=== PATIENT | male | born 1950 | race Caucasian/White ===

== ENCOUNTER → 2019-02-25 | Outpatient (REF) | payer MEDICARE | LOC: M LAB REF 11:38 | PROVIDERS: ATTEND Nurse Practitioner Family | DX: R30.0 Dysuria (principal) ==

== ENCOUNTER 2019-12-21 10:39 | Emergency (ER) | payer MEDICARE, OTHER ==
[~2019-12-21] VITALS: Ht 177.8 cm; Wt 63.3 kg
[2019-12-21] MEDS ORDERED: TIOT18INH INH (10:50)
[2019-12-21] MEDS ORDERED: ALBU8.5H INH (10:50)
[2019-12-21] MEDS ORDERED: ADV100INH INH (10:50)
[2019-12-21] MEDS ORDERED: SING10TA32 PO (10:50)
[2019-12-21] MEDS ORDERED: predniSONE 20 MG TAB PO ONE (11:45)
[2019-12-21] MEDS: COMBIVENT RESPIMAT 100-20MCG INHALER 4GM INH SCH ×3 (11:54→12:25)
[2019-12-21 12:09] LABS: BASO % 0.5 % (0.0-1.0); EOS # 0.2 10^3/uL (0.0-0.5); EOS % 2.5 % (0.0-3.0); HEMATOCRIT 44.2 % (42.0-52.0); HEMOGLOBIN 14.9 g/dl (13.5-17.5); LYMPH # 1.8 10^3/uL (1.5-5.0); LYMPH % 21.4 % (24.0-44.0); MEAN CORPUSCULAR HEMOGLOBIN 30.2 pg (27.0-33.0); MEAN CORPUSCULAR HGB CONC 33.7 g/dl (32.0-36.5); MEAN CORPUSCULAR VOLUME 89.7 fl (80.0-96.0); MONO # 0.8 10^3/uL (0.0-0.8); MONO % 9.9 % (0.0-5.0); NEUTROPHILS # 5.4 10^3/uL (1.5-8.5); PLATELET COUNT, AUTOMATED 233 10^3/uL (150-450); RED BLOOD COUNT 4.93 10^6/uL (4.30-6.10); WHITE BLOOD COUNT 8.3 10^3/uL (4.0-10.0)
[2019-12-21 12:46] LABS: ALBUMIN 3.6 GM/DL (3.2-5.2); ALT/SGPT 29 U/L (12-78); BILIRUBIN,DIRECT 0.1 MG/DL (0.0-0.2); BILIRUBIN,TOTAL 0.4 MG/DL (0.2-1.0); BLOOD UREA NITROGEN 13 MG/DL (7-18); CALCIUM LEVEL 8.6 MG/DL (8.8-10.2); CARBON DIOXIDE LEVEL 30 MEQ/L (21-32); CHLORIDE LEVEL 105 MEQ/L (98-107); CK-MB VALUE MASS < 1.0 NG/ML (<3.6); CPK CREATINE PHOSPHOKINASE 58 U/L (39-308); CREATININE FOR GFR 0.77 MG/DL (0.70-1.30); GLOMERULAR FILTRATION RATE > 60.0 (>49); GLUCOSE, FASTING 84 MG/DL (70-100); MB/CK RELATIVE INDEX 1.72 (< OR =4); NT-PRO BNP 137 PG/ML (<125); POTASSIUM SERUM 4.4 MEQ/L (3.5-5.1); SODIUM LEVEL 140 MEQ/L (136-145); THYROXINE (T4) 13.2 UG/DL (4.5-12.0); TOTAL PROTEIN 7.1 GM/DL (6.4-8.2); TROPONIN I < 0.02 NG/ML (< 0.10)
[2019-12-21] MEDS ORDERED: AZIT-12 PO (13:24)
[2019-12-21] MEDS ORDERED: PRED10TA2 PO (13:24)
[2019-12-21 13:56] VITALS: BP 143/74
--- NOTE | 2020-01-08 16:36 | ECGEPIP ---
SINUS RHYTHM WITH SUPRAVENTRICULAR PACS PRWP RVH SEE SCANNED DOWNTIME REPORT MTDD
--- NOTE | 2020-01-16 14:19 | REP ---
PORTABLE CHEST X-RAY CLINICAL: Cough and dyspnea. FINDINGS: Mediastinum and cardiac silhouette normal. Lung josue demonstrate chronic interstitial changes and emphysematous disease with suggested basilar fibrosis. No obvious focal consolidation. No effusion. No pneumothorax. Skeletal structures intact. IMPRESSION: Chronic appearing changes. No focal consolidation. MTDD
== END 2019-12-21 13:58 | disposition home or self-care (01) ==
LOC: M ED 10:39
DX: J44.1 Chronic obstructive pulmonary disease with (acute) exacerbation (principal); C67.9 Malignant neoplasm of bladder, unspecified; Z88.1 Allergy status to other antibiotic agents

== ENCOUNTER → 2021-11-07 | Outpatient (CLI) | payer OTHER ==
[~2021-11-07] MED LIST: ADV100INH INH; ALBU8.5H INH; AZIT-12 PO; PRED10TA2 PO; SING10TA32 PO; TIOT18INH INH
== END ==
LOC: M PLARAD 13:13
PROVIDERS: ATTEND Internal Medicine
DX: R91.1 Solitary pulmonary nodule (principal)
CPT/HCPCS: 78815; A9552

== ENCOUNTER 2022-04-26 10:28 | Inpatient (IN) | payer MEDICARE, OTHER ==
[~2022-04-26] VITALS: Ht 177.8 cm; Wt 64.0 kg
[2022-04-26 11:17] LABS: VENOUS BASE EXCESS 0.3 (-2.0-2.0); VENOUS HCO3 25.6 MEQ/L (23.0-27.0); VENOUS O2 SATURATION 48.7 % (60.0-80.0); VENOUS PARTIAL PRESSURE CO2 43.9 mmHg (38.0-50.0); VENOUS PARTIAL PRESSURE O2 26.9 mmHg (30.0-50.0); VENOUS PH 7.384 UNITS (7.330-7.430); VENOUS STANDARD HCO3 23.5 MEQ/L
[2022-04-26 11:24] LABS: HEMATOCRIT 42.6 % (42.0-52.0); MEAN CORPUSCULAR HEMOGLOBIN 28.8 pg (27.0-33.0); MEAN CORPUSCULAR HGB CONC 32.9 g/dl (32.0-36.5); MEAN CORPUSCULAR VOLUME 87.7 fl (80.0-96.0); PLATELET COUNT, AUTOMATED 294 10^3/uL (150-450); RED BLOOD COUNT 4.86 10^6/uL (4.30-6.10); WHITE BLOOD COUNT 14.4 10^3/uL (4.0-10.0)
[2022-04-26 11:45] LABS: INR 0.88; PROTHROMBIN TIME 12.1 SECONDS (12.5-14.5)
[2022-04-26 11:49] LABS: BILIRUBIN,DIRECT 0.2 MG/DL (<0.4)
[2022-04-26 11:50] LABS: ALKALINE PHOSPHATASE 96 U/L (46-116); ALT/SGPT 20 U/L (7.0-40); AST/SGOT 28 U/L (<34); BILIRUBIN,TOTAL 0.6 MG/DL (0.3-1.2); BLOOD UREA NITROGEN 19 MG/DL (9-23); CALCIUM LEVEL 8.7 MG/DL (8.3-10.6); CARBON DIOXIDE LEVEL 26 MMOL/L (20-31); CHLORIDE LEVEL 100 MMOL/L (98-107); CK-MB VALUE MASS < 1.0 NG/ML (<3.6); CPK CREATINE PHOSPHOKINASE 59 U/L (46-171); CREATININE FOR GFR 0.86 MG/DL (0.70-1.30); GLOMERULAR FILTRATION RATE > 60.0 (>49); GLUCOSE, FASTING 100 MG/DL (74-106); MB/CK RELATIVE INDEX 1.69 (< OR =4); POTASSIUM SERUM 4.7 MMOL/L (3.5-5.1); SODIUM LEVEL 136 MMOL/L (136-145); TOTAL PROTEIN 6.8 G/DL (5.7-8.2)
[2022-04-26] MEDS ORDERED: cefTRIAXone SOD 2 GM in D5W MINI-BAG PLUS 50 ML IV ONE (12:15)
[2022-04-26] MEDS ORDERED: NS 1,840 ML in IV 1 EA IV ONE (12:15)
[2022-04-26 12:40] LABS: CK-MB VALUE MASS < 1.0 NG/ML (<3.6)
[2022-04-26 12:43] LABS: CPK CREATINE PHOSPHOKINASE 54 U/L (46-171); MB/CK RELATIVE INDEX 1.85 (< OR =4)
[2022-04-26 13:36] LABS: BASO # 0.1 10^3/uL (0.0-0.2); BASO % 0.4 % (0.0-1.0); EOS % 0.3 % (0.0-3.0); LYMPH # 1.4 10^3/uL (1.5-5.0); LYMPH % 9.5 % (24.0-44.0); MONO % 11.1 % (2.0-8.0); NEUTROPHILS # 11.1 10^3/uL (1.5-8.5); NEUTROPHILS % 77.6 % (36.0-66.0)
[2022-04-26 13:39] LABS: MONO # 1.6 10^3/uL (0.0-0.8)
[2022-04-26] MEDS ORDERED: ADV500INH INH (14:46)
[2022-04-26] MEDS ORDERED: VITMTA PO (14:46)
[2022-04-26] MEDS ORDERED: SPIR12.9 INH (14:46)
[2022-04-26] MEDS ORDERED: ALBU2.5V10 NEB (14:46)
[2022-04-26] MEDS ORDERED: HOME MED LIST COMPLETE! XX SCH (14:50)
[2022-04-26] MEDS ORDERED: guaiFENesin 200 MG TAB PO SCH (16:00)
[2022-04-26] MEDS ORDERED: ACETAMINOPHEN TAB 650MG DOSE (2X325MG) PO PRN (16:45)
[2022-04-26] MEDS ORDERED: LEVALBUTEROL 1.25MG 0.5ML CONCENTRATE NEB INH PRN (16:45)
[2022-04-26] MEDS: AZITHROMYCIN 250MG TABLET PO SCH (18:09)
[2022-04-26] MEDS: ADVAIR HFA 230/21MCG INHALER INH SCH (19:10)
[2022-04-26] MEDS: LEVALBUTEROL 1.25MG 0.5ML CONCENTRATE NEB INH SCH (19:10)
[2022-04-26 19:13] VITALS: O2SAT 91
[2022-04-26 20:00] VITALS: BP 129/72
[2022-04-26] MEDS: guaiFENesin 200 MG TAB PO SCH (21:22)
[2022-04-26] MEDS: HEPARIN SOD (PORCINE) 5000UNITS/ML 1ML VIAL/SYRINGE SC SCH (21:24)
[2022-04-27] VITALS: BP 127/69
[2022-04-27] MEDS: LEVALBUTEROL 1.25MG 0.5ML CONCENTRATE NEB INH SCH ×3 (01:09→13:22)
[2022-04-27] MEDS: guaiFENesin 200 MG TAB PO SCH ×3 (01:35→09:46)
[2022-04-27 03:38] VITALS: BP 132/71
[2022-04-27 04:19] LABS: HEMATOCRIT 36.7 % (42.0-52.0); MEAN CORPUSCULAR HEMOGLOBIN 28.4 pg (27.0-33.0); MEAN CORPUSCULAR HGB CONC 32.4 g/dl (32.0-36.5); MEAN CORPUSCULAR VOLUME 87.6 fl (80.0-96.0); PLATELET COUNT, AUTOMATED 285 10^3/uL (150-450); RED BLOOD COUNT 4.19 10^6/uL (4.30-6.10); WHITE BLOOD COUNT 7.1 10^3/uL (4.0-10.0)
[2022-04-27 04:20] LABS: HEMOGLOBIN 11.9 g/dl (13.5-17.5)
[2022-04-27 04:33] LABS: MAGNESIUM LEVEL 1.9 MG/DL (1.8-2.4)
[2022-04-27 04:39] LABS: ALBUMIN 2.7 G/DL (3.2-5.2); ALKALINE PHOSPHATASE 81 U/L (46-116); ALT/SGPT 25 U/L (7.0-40); AST/SGOT 22 U/L (<34); BILIRUBIN,TOTAL 0.4 MG/DL (0.3-1.2); BLOOD UREA NITROGEN 26 MG/DL (9-23); CALCIUM LEVEL 8.2 MG/DL (8.3-10.6); CARBON DIOXIDE LEVEL 25 MMOL/L (20-31); CHLORIDE LEVEL 103 MMOL/L (98-107); CREATININE FOR GFR 0.72 MG/DL (0.70-1.30); GLOMERULAR FILTRATION RATE > 60.0 (>49); GLUCOSE, FASTING 117 MG/DL (74-106); POTASSIUM SERUM 4.9 MMOL/L (3.5-5.1); SODIUM LEVEL 138 MMOL/L (136-145); TOTAL PROTEIN 5.8 G/DL (5.7-8.2)
[2022-04-27] MEDS: HEPARIN SOD (PORCINE) 5000UNITS/ML 1ML VIAL/SYRINGE SC SCH (05:35)
[2022-04-27 07:35] VITALS: BP 118/61
[2022-04-27] MEDS ORDERED: TIOTROPIUM INHALER/CAPSULE (SPIRIVA) INH SCH (08:00)
[2022-04-27] MEDS: ADVAIR HFA 230/21MCG INHALER INH SCH (08:06)
[2022-04-27] MEDS ORDERED: MONTELUKAST 10 MG TAB PO SCH (09:00)
[2022-04-27] MEDS ORDERED: predniSONE 50 MG TAB PO SCH (09:00)
[2022-04-27] MEDS ORDERED: MULTIVITAMINS/MINERALS THERAP 1 TAB PO SCH (09:00)
[2022-04-27 09:46] VITALS: BP 118/61
[2022-04-27] MEDS: AZITHROMYCIN 250MG TABLET PO SCH (09:46)
[2022-04-27 11:58] LABS: HEMATOCRIT 37.6 % (42.0-52.0); HEMOGLOBIN 12.4 g/dl (13.5-17.5)
[2022-04-27] MEDS ORDERED: LEVO1TAB40 PO (12:39)
[2022-04-27] MEDS ORDERED: DILT30TA PO (12:39)
[2022-04-27] MEDS ORDERED: AZIT-12 PO (12:39)
[2022-04-27] MEDS ORDERED: PRED50TA PO (12:39)
[2022-04-27] MEDS ORDERED: cefTRIAXone SOD 2 GM in D5W MINI-BAG PLUS 50 ML IV SCH (13:00)
[2022-04-27 13:10] VITALS: BP 128/58
[2022-04-28] MEDS ORDERED: DILT30TA PO (10:10)
== END 2022-04-27 14:40 | disposition home or self-care (01) | DRG 308 ==
LOC: M ED 10:28 → EDBD 10:28 → M ED INP 16:44 → ENRESERV 18:28 → M PCU 19:49
PROVIDERS: ADMIT Family Medicine; ATTEND Family Medicine
DX: I48.92 Unspecified atrial flutter (principal); J18.9 Pneumonia, unspecified organism; J44.1 Chronic obstructive pulmonary disease with (acute) exacerbation; I48.91 Unspecified atrial fibrillation; Z79.899 Other long term (current) drug therapy; Z87.891 Personal history of nicotine dependence

== ENCOUNTER 2022-10-05 08:20 | Emergency (ER) | payer MEDICARE, OTHER ==
[~2022-10-05] VITALS: Ht 177.8 cm; Wt 62.7 kg
[~2022-10-05 08:20] MED LIST changes: +ADV500INH INH; +ALBU2.5V10 NEB; +DILT30TA PO; +LEVO1TAB40 PO; +MONT-5 PO; +PRED50TA PO; -SING10TA32 PO; +SPIR12.9 INH; +VITMTA PO
[2022-10-05] MEDS ORDERED: CARD40TA PO (08:32)
[2022-10-05] MEDS ORDERED: ACETAMINOPHEN 500 MG TAB PO ONE (08:35)
[2022-10-05] MEDS ORDERED: predniSONE 20 MG TAB PO ONE (11:40)
[2022-10-05] MEDS ORDERED: NORCO, ANEXSIA 5/325MG TABLET (HYDROcodone/ACETAMINOPHEN) PO ONE (11:40)
[2022-10-05] MEDS ORDERED: PRED20TA PO (12:17)
[2022-10-05] MEDS ORDERED: HYDR-4571 PO (12:17)
[2022-10-05 12:24] VITALS: BP 148/76; TEMP 98.4; O2SAT 90
== END 2022-10-05 13:00 | disposition home or self-care (01) ==
LOC: M ED 08:20
DX: J20.9 Acute bronchitis, unspecified (principal); S52.352A Displaced comminuted fracture of shaft of radius, left arm, initial encounter for closed fracture; I10 Essential (primary) hypertension; C67.9 Malignant neoplasm of bladder, unspecified; W01.0XXA Fall on same level from slipping, tripping and stumbling without subsequent striking against object, initial encounter; Z88.8 Allergy status to other drugs, medicaments and biological substances; Z79.52 Long term (current) use of systemic steroids; Z79.899 Other long term (current) drug therapy; Y92.009 Unspecified place in unspecified non-institutional (private) residence as the place of occurrence of the external cause
CPT/HCPCS: 73090; 73110; 73502; 99284; J7512

== ENCOUNTER → 2022-10-06 | Outpatient (CLI) | payer MEDICARE, OTHER ==
[~2022-10-06] MED LIST changes: +CARD40TA PO; +HYDR-4571 PO; +PRED20TA PO
== END ==
LOC: M SOG 09:06
PROVIDERS: ATTEND Orthopaedic Surgery
DX: S52.592A Other fractures of lower end of left radius, initial encounter for closed fracture (principal)

== ENCOUNTER → 2022-10-11 | Outpatient (CLI) | payer MEDICARE | LOC: M SOG 08:41 | PROVIDERS: ATTEND Orthopaedic Surgery | DX: S52.592D Other fractures of lower end of left radius, subsequent encounter for closed fracture with routine healing (principal) ==

== ENCOUNTER → 2022-10-27 | Outpatient (CLI) | payer MEDICARE | LOC: M SOG 08:01 | PROVIDERS: ATTEND Orthopaedic Surgery | DX: S52.592A Other fractures of lower end of left radius, initial encounter for closed fracture (principal); W18.30XA Fall on same level, unspecified, initial encounter; Y92.009 Unspecified place in unspecified non-institutional (private) residence as the place of occurrence of the external cause ==

== ENCOUNTER → 2022-11-22 | Outpatient (CLI) | payer BC, OTHER | LOC: M SOG 08:24 | PROVIDERS: ATTEND Orthopaedic Surgery | DX: S52.592D Other fractures of lower end of left radius, subsequent encounter for closed fracture with routine healing (principal) ==

== ENCOUNTER → 2022-12-11 | Outpatient (CLI) | payer MEDICARE, OTHER | LOC: M RAD 09:05 | DX: B19.20 Unspecified viral hepatitis C without hepatic coma (principal) ==

== ENCOUNTER 2023-04-24 08:20 | Inpatient (IN) | payer MEDICARE, OTHER ==
[~2023-04-24] VITALS: Ht 177.8 cm; Wt 64.4 kg
[2023-04-24] MEDS: DOCUSATE SODIUM 100MG CAPSULE PO SCH ×2 (09:00→19:59)
[2023-04-24 09:29] LABS: BASO % 0.1 % (0.0-1.0); EOS # 0.1 10^3/uL (0.0-0.5); EOS % 0.6 % (0.0-3.0); HEMOGLOBIN 14.5 g/dl (13.5-17.5); LYMPH # 1.6 10^3/uL (1.5-5.0); LYMPH % 10.5 % (24.0-44.0); MEAN CORPUSCULAR HEMOGLOBIN 29.8 pg (27.0-33.0); MEAN CORPUSCULAR HGB CONC 33.7 g/dl (32.0-36.5); MEAN CORPUSCULAR VOLUME 88.3 fl (80.0-96.0); MONO # 1.4 10^3/uL (0.0-0.8); MONO % 9.6 % (2.0-8.0); NEUTROPHILS # 11.6 10^3/uL (1.5-8.5); NEUTROPHILS % 78.5 % (36.0-66.0); PLATELET COUNT, AUTOMATED 276 10^3/uL (150-450); RED BLOOD COUNT 4.87 10^6/uL (4.30-6.10); WHITE BLOOD COUNT 14.7 10^3/uL (4.0-10.0)
[2023-04-24 09:45] LABS: CK-MB VALUE MASS 1.2 NG/ML (<3.6)
[2023-04-24 09:47] LABS: ALBUMIN 3.1 G/DL (3.2-5.2); ALKALINE PHOSPHATASE 72 U/L (46-116); ALT/SGPT 28 U/L (7.0-40); AST/SGOT 21 U/L (<34); BILIRUBIN,DIRECT 0.1 MG/DL (<0.4); BILIRUBIN,TOTAL 0.4 MG/DL (0.3-1.2); BLOOD UREA NITROGEN 18 MG/DL (9-23); CALCIUM LEVEL 8.5 MG/DL (8.3-10.6); CARBON DIOXIDE LEVEL 28 MMOL/L (20-31); CHLORIDE LEVEL 107 MMOL/L (98-107); CPK CREATINE PHOSPHOKINASE 54 U/L (46-171); CREATININE FOR GFR 0.74 MG/DL (0.70-1.30); GLOMERULAR FILTRATION RATE > 60.0 (>42); GLUCOSE, FASTING 82 MG/DL (74-106); MB/CK RELATIVE INDEX 2.22 (< OR =4); POTASSIUM SERUM 4.4 MMOL/L (3.5-5.1); SODIUM LEVEL 141 MMOL/L (136-145); TOTAL PROTEIN 6.3 G/DL (5.7-8.2)
[2023-04-24 11:01] LABS: CK-MB VALUE MASS 1.1 NG/ML (<3.6)
[2023-04-24 11:03] LABS: MB/CK RELATIVE INDEX 2.5 (< OR =4)
[2023-04-24] MEDS ORDERED: ISOVUE-370 76% 100ML VIAL As Ordered ONE (11:54)
[2023-04-24] MEDS ORDERED: IPRATROPIUM 0.5MG/ALBUTEROL 2.5MG INH SOL UD 3ML (DUONEB) NEB ONE (11:55)
[2023-04-24] MEDS ORDERED: methylPREDNISolone 125MG 2ML VIAL IV ONE (11:55)
[2023-04-24] MEDS ORDERED: MED REC IN PROGRESS XX SCH (12:40)
[2023-04-24] MEDS ORDERED: AZITHROMYCIN 250MG TABLET PO ONE (12:40)
[2023-04-24] MEDS ORDERED: cefTRIAXone SOD 1 GM in D5W MINI-BAG PLUS 50 ML IV ONE (12:40)
[2023-04-24] MEDS ORDERED: MOM 30ML SUSPENSION UDC PO PRN (13:30)
[2023-04-24] MEDS ORDERED: ACETAMINOPHEN TAB 650MG DOSE (2X325MG) PO PRN (13:30)
[2023-04-24] MEDS: IPRATROPIUM 0.5MG/ALBUTEROL 2.5MG INH SOL UD 3ML (DUONEB) INH SCH ×3 (14:00→19:15)
[2023-04-24 14:27] LABS: INR 1.02; PROTHROMBIN TIME 13.1 SECONDS (12.5-14.5)
[2023-04-24] MEDS ORDERED: ASPI81CH33 PO (14:36)
[2023-04-24] MEDS ORDERED: HOME MED LIST COMPLETE! XX SCH (14:40)
[2023-04-24 16:04] VITALS: BP 161/86; TEMP 97.3; O2SAT 93
[2023-04-24] MEDS ORDERED: ALBUTEROL SULFATE 2.5MG/0.5ML INH NEB SOLN NEB PRN (18:25)
[2023-04-24] MEDS: ADVAIR HFA 230/21MCG INHALER INH SCH (19:15)
[2023-04-24] MEDS: TIOTROPIUM INHALER/CAPSULE (SPIRIVA) INH SCH (19:15)
[2023-04-24] MEDS: dilTIAZem 30 MG TAB PO SCH (20:00)
[2023-04-24 20:49] VITALS: BP 112/71; TEMP 97.7; O2SAT 96
[2023-04-25] MEDS: IPRATROPIUM 0.5MG/ALBUTEROL 2.5MG INH SOL UD 3ML (DUONEB) INH SCH ×4 (01:15→20:44)
[2023-04-25 04:59] VITALS: BP 130/75; TEMP 97.7; O2SAT 96
[2023-04-25 05:58] LABS: HEMATOCRIT 40.4 % (42.0-52.0); HEMOGLOBIN 13.5 g/dl (13.5-17.5); MEAN CORPUSCULAR HEMOGLOBIN 29.3 pg (27.0-33.0); MEAN CORPUSCULAR HGB CONC 33.4 g/dl (32.0-36.5); MEAN CORPUSCULAR VOLUME 87.8 fl (80.0-96.0); PLATELET COUNT, AUTOMATED 297 10^3/uL (150-450); WHITE BLOOD COUNT 9.7 10^3/uL (4.0-10.0)
[2023-04-25 06:26] LABS: BLOOD UREA NITROGEN 21 MG/DL (9-23); CALCIUM LEVEL 8.2 MG/DL (8.3-10.6); CARBON DIOXIDE LEVEL 26 MMOL/L (20-31); CHLORIDE LEVEL 105 MMOL/L (98-107); CREATININE FOR GFR 0.74 MG/DL (0.70-1.30); GLOMERULAR FILTRATION RATE > 60.0 (>42); GLUCOSE, FASTING 117 MG/DL (74-106); POTASSIUM SERUM 4.3 MMOL/L (3.5-5.1); SODIUM LEVEL 139 MMOL/L (136-145)
[2023-04-25] MEDS: TIOTROPIUM INHALER/CAPSULE (SPIRIVA) INH SCH ×2 (07:11→20:47)
[2023-04-25] MEDS: ADVAIR HFA 230/21MCG INHALER INH SCH ×2 (07:12→20:44)
[2023-04-25] MEDS: RIVAROXABAN 10MG TAB (XARELTO) PO SCH (09:00)
[2023-04-25] MEDS: DOCUSATE SODIUM 100MG CAPSULE PO SCH ×2 (09:00→21:00)
[2023-04-25] MEDS ORDERED: AZITHROMYCIN 250MG TABLET PO SCH (09:00)
[2023-04-25] MEDS: predniSONE 20 MG TAB PO SCH (09:05)
[2023-04-25] MEDS: ASPIRIN 81MG CHEW TABLET PO SCH (09:06)
[2023-04-25] MEDS: dilTIAZem 30 MG TAB PO SCH ×2 (09:07→21:59)
[2023-04-25] MEDS: MONTELUKAST 10 MG TAB PO SCH (09:07)
[2023-04-25] MEDS: MULTIVITAMINS/MINERALS THERAP 1 TAB PO SCH (09:07)
[2023-04-25] MEDS ORDERED: cefTRIAXone SOD 1 GM in D5W MINI-BAG PLUS 50 ML IV SCH (13:00)
[2023-04-25 14:00] VITALS: BP 130/74; TEMP 98.1; O2SAT 93
[2023-04-25 20:05] VITALS: BP 128/69; TEMP 97.7; O2SAT 100
[2023-04-26] MEDS: IPRATROPIUM 0.5MG/ALBUTEROL 2.5MG INH SOL UD 3ML (DUONEB) INH SCH ×2 (01:12→07:46)
[2023-04-26 05:38] VITALS: BP 159/84; TEMP 97.7; O2SAT 91
[2023-04-26] MEDS ORDERED: LevoFLOXacin 750 MG TABLET PO SCH (06:00)
[2023-04-26 07:45] VITALS: O2SAT 91
[2023-04-26] MEDS: ADVAIR HFA 230/21MCG INHALER INH SCH (07:46)
[2023-04-26] MEDS: TIOTROPIUM INHALER/CAPSULE (SPIRIVA) INH SCH (07:46)
[2023-04-26] MEDS: DOCUSATE SODIUM 100MG CAPSULE PO SCH (09:00)
[2023-04-26] MEDS: RIVAROXABAN 10MG TAB (XARELTO) PO SCH (09:00)
[2023-04-26] MEDS: predniSONE 20 MG TAB PO SCH (09:34)
[2023-04-26] MEDS: MONTELUKAST 10 MG TAB PO SCH (09:34)
[2023-04-26] MEDS: MULTIVITAMINS/MINERALS THERAP 1 TAB PO SCH (09:34)
[2023-04-26] MEDS: ASPIRIN 81MG CHEW TABLET PO SCH (09:34)
[2023-04-26 09:36] VITALS: BP 159/86
[2023-04-26] MEDS: dilTIAZem 30 MG TAB PO SCH (09:36)
[2023-04-26] MEDS ORDERED: PRED20TA PO ×2 (11:22→11:25)
[2023-04-26] MEDS ORDERED: LEVO1TAB40 PO (11:22)
[2023-04-26] MEDS ORDERED: IPRA0.00 INH (11:25)
[2023-04-26 11:33] VITALS: BP 138/78; TEMP 98.1; O2SAT 94
[2023-04-26 14:00] VITALS: BP 147/81; TEMP 98.1; O2SAT 95
== END 2023-04-26 15:30 | disposition home or self-care (01) | DRG 178 ==
LOC: M ED 08:20 → M ED INP 13:26 → ENRESERVTM 15:13 → ENRESERVDT 15:13 → M MSPAV 16:00
PROVIDERS: ADMIT Student in an Organized Health Care Education/Training Program; ATTEND Student in an Organized Health Care Education/Training Program
DX: J15.69 Pneumonia due to other Gram-negative bacteria (principal); J44.0 Chronic obstructive pulmonary disease with (acute) lower respiratory infection; I48.0 Paroxysmal atrial fibrillation; R91.8 Other nonspecific abnormal finding of lung field; R25.1 Tremor, unspecified; Z88.8 Allergy status to other drugs, medicaments and biological substances; Z79.82 Long term (current) use of aspirin; Z79.899 Other long term (current) drug therapy; Z85.51 Personal history of malignant neoplasm of bladder; Z87.891 Personal history of nicotine dependence

== ENCOUNTER → 2023-06-04 | Outpatient (CLI) | payer OTHER, MEDICARE ==
[~2023-06-04] MED LIST changes: +ASPI81CH33 PO; +IPRA0.00 INH
== END ==
LOC: M PLARAD 08:47
PROVIDERS: ATTEND Internal Medicine Pulmonary Disease
DX: R91.1 Solitary pulmonary nodule (principal); J44.9 Chronic obstructive pulmonary disease, unspecified
CPT/HCPCS: 78815; A9552

== ENCOUNTER 2023-07-24 10:52 | Inpatient (IN) | payer OTHER, MEDICARE ==
[~2023-07-24] VITALS: Ht 177.8 cm; Wt 64.4 kg
[2023-07-24] MEDS ORDERED: PRED10TA2 PO (11:40)
[2023-07-24 11:58] LABS: ABG BASE EXCESS -0.2 (-2.0-2.0); ABG HCO3 23.3 MMOL/L (22.0-26.0); ABG O2 SATURATION 96.9 % (95.0-99.0); ABG PARTIAL PRESSURE O2 86.4 mmHg (75.0-100.0); ABG STANDARD HCO3 24.3 MMOL/L. (22.0-26.0); ABG TOTAL CO2 24.4 MMOL/L (23.0-31.0); ABG pH (ARTERIAL) 7.442 UNITS (7.350-7.450)
[2023-07-24 12:21] LABS: BASO % 0.2 % (0.0-1.0); HEMOGLOBIN 13.3 g/dl (13.5-17.5); LYMPH # 0.6 10^3/uL (1.5-5.0); LYMPH % 3.1 % (24.0-44.0); MEAN CORPUSCULAR HEMOGLOBIN 29.3 pg (27.0-33.0); MEAN CORPUSCULAR HGB CONC 33.3 g/dl (32.0-36.5); MEAN CORPUSCULAR VOLUME 88.1 fl (80.0-96.0); MONO # 0.9 10^3/uL (0.0-0.8); MONO % 4.6 % (2.0-8.0); NEUTROPHILS # 16.6 10^3/uL (1.5-8.5); NEUTROPHILS % 89.3 % (36.0-66.0); PLATELET COUNT, AUTOMATED 350 10^3/uL (150-450); RED BLOOD COUNT 4.54 10^6/uL (4.30-6.10); WHITE BLOOD COUNT 18.6 10^3/uL (4.0-10.0)
[2023-07-24 12:39] LABS: D-DIMER QUANT 0.62 ug/mL (<0.5); INR 1.01
[2023-07-24 12:43] LABS: ALBUMIN 3.1 G/DL (3.2-5.2); ALKALINE PHOSPHATASE 77 U/L (46-116); ALT/SGPT 31 U/L (7.0-40); AST/SGOT 16 U/L (<34); BILIRUBIN,DIRECT 0.2 MG/DL (<0.4); BILIRUBIN,TOTAL 0.4 MG/DL (0.3-1.2); BLOOD UREA NITROGEN 18 MG/DL (9-23); CALCIUM LEVEL 9.2 MG/DL (8.3-10.6); CARBON DIOXIDE LEVEL 28 MMOL/L (20-31); CHLORIDE LEVEL 105 MMOL/L (98-107); CREATININE FOR GFR 0.68 MG/DL (0.70-1.30); DIGOXIN LEVEL < 0.1 NG/ML (0.8-2.0); GLOMERULAR FILTRATION RATE > 60.0 (>42); GLUCOSE, FASTING 127 MG/DL (74-106); POTASSIUM SERUM 4.5 MMOL/L (3.5-5.1); SODIUM LEVEL 138 MMOL/L (136-145); TOTAL PROTEIN 6.2 G/DL (5.7-8.2)
[2023-07-24] MEDS: methylPREDNISolone 125MG 2ML VIAL IV ONE (13:06)
[2023-07-24] MEDS: cefTRIAXone SOD 1 GM in D5W MINI-BAG PLUS 50 ML IV ONE (13:06)
[2023-07-24] MEDS ORDERED: ISOVUE-370 76% 100ML VIAL As Ordered ONE (13:21)
[2023-07-24 13:30] LABS: PROCALCITONIN 0.18 ng/ml
[2023-07-24] MEDS: IPRATROPIUM 0.5MG/ALBUTEROL 2.5MG INH SOL UD 3ML (DUONEB) NEB ONE ×2 (13:36)
[2023-07-24] MEDS: AZITHROMYCIN INJ 500 MG, VIAL MATE ADAPTER 1 EACH in NS 250 ML IV ONE (14:28)
[2023-07-24] MEDS ORDERED: ALBUTEROL SULFATE 2.5MG/0.5ML INH NEB SOLN NEB PRN (16:25)
[2023-07-24] MEDS ORDERED: IPRA0.00 INH (17:01)
[2023-07-24] MEDS ORDERED: MULT-90 PO (17:01)
[2023-07-24] MEDS ORDERED: HOME MED LIST COMPLETE! XX SCH (17:05)
[2023-07-24 18:00] VITALS: BP 142/70; TEMP 98.3; O2SAT 95
[2023-07-24] MEDS: IPRATROPIUM 0.5MG/ALBUTEROL 2.5MG INH SOL UD 3ML (DUONEB) NEB SCH (19:23)
[2023-07-24 20:33] VITALS: BP 156/89; TEMP 97.5; O2SAT 95
[2023-07-24] MEDS: dilTIAZem 30 MG TAB PO SCH (20:36)
[2023-07-24 23:06] VITALS: O2SAT 98
[2023-07-25] VITALS (16 sets, daily range): BP systolic 142–192; BP diastolic 74–114; TEMP 97.3–97.9; O2SAT 80–98
[2023-07-25] MEDS: methylPREDNISolone 125MG 2ML VIAL IV SCH (01:04)
[2023-07-25] MEDS ORDERED: dilTIAZem 25MG/5ML VIAL IV STA (06:28)
[2023-07-25] MEDS: dilTIAZem 60 MG TAB PO ONE ×2 (06:48→19:42)
[2023-07-25 07:13] LABS: HEMATOCRIT 42.4 % (42.0-52.0); HEMOGLOBIN 14.2 g/dl (13.5-17.5); MEAN CORPUSCULAR HEMOGLOBIN 29.4 pg (27.0-33.0); MEAN CORPUSCULAR HGB CONC 33.5 g/dl (32.0-36.5); MEAN CORPUSCULAR VOLUME 87.8 fl (80.0-96.0); PLATELET COUNT, AUTOMATED 386 10^3/uL (150-450); RED BLOOD COUNT 4.83 10^6/uL (4.30-6.10); WHITE BLOOD COUNT 15.4 10^3/uL (4.0-10.0)
[2023-07-25 07:30] LABS: ALKALINE PHOSPHATASE 80 U/L (46-116); ALT/SGPT 25 U/L (7.0-40); AST/SGOT 12 U/L (<34); BILIRUBIN,TOTAL 0.4 MG/DL (0.3-1.2); BLOOD UREA NITROGEN 19 MG/DL (9-23); CALCIUM LEVEL 9.1 MG/DL (8.3-10.6); CARBON DIOXIDE LEVEL 29 MMOL/L (20-31); CHLORIDE LEVEL 103 MMOL/L (98-107); CREATININE FOR GFR 0.73 MG/DL (0.70-1.30); GLOMERULAR FILTRATION RATE > 60.0 (>42); GLUCOSE, FASTING 132 MG/DL (74-106); POTASSIUM SERUM 4.2 MMOL/L (3.5-5.1); SODIUM LEVEL 138 MMOL/L (136-145); TOTAL PROTEIN 6.4 G/DL (5.7-8.2)
[2023-07-25] MEDS: ADVAIR HFA 230/21MCG INHALER INH SCH (07:36)
[2023-07-25] MEDS: TIOTROPIUM INHALER/CAPSULE (SPIRIVA) INH SCH (07:36)
[2023-07-25] MEDS: AZITHROMYCIN 250MG TABLET PO SCH (08:20)
[2023-07-25] MEDS: ASPIRIN 81MG CHEW TABLET PO SCH (08:21)
[2023-07-25] MEDS: MONTELUKAST 10 MG TAB PO SCH (08:21)
[2023-07-25] MEDS: ENOXAPARIN 40MG/0.4ML SYRINGE (J1650 PER 10MG) SC SCH (08:21)
[2023-07-25] MEDS: cefTRIAXone SOD 1 GM in D5W MINI-BAG PLUS 50 ML IV SCH (12:00)
[2023-07-26] VITALS (50 sets, daily range): BP systolic 91–162; BP diastolic 53–88; TEMP 97.2–99.4; O2SAT 88–99
[2023-07-26] MEDS: dilTIAZem 30 MG TAB PO ONE (06:43)
[2023-07-26 06:59] LABS: HEMATOCRIT 44.9 % (42.0-52.0); HEMOGLOBIN 14.9 g/dl (13.5-17.5); MEAN CORPUSCULAR HEMOGLOBIN 29.2 pg (27.0-33.0); MEAN CORPUSCULAR HGB CONC 33.2 g/dl (32.0-36.5); MEAN CORPUSCULAR VOLUME 87.9 fl (80.0-96.0); PLATELET COUNT, AUTOMATED 410 10^3/uL (150-450); RED BLOOD COUNT 5.11 10^6/uL (4.30-6.10); WHITE BLOOD COUNT 17.3 10^3/uL (4.0-10.0)
[2023-07-26 07:25] LABS: ALBUMIN 3.4 G/DL (3.2-5.2); ALKALINE PHOSPHATASE 85 U/L (46-116); ALT/SGPT 29 U/L (7.0-40); AST/SGOT 13 U/L (<34); BILIRUBIN,TOTAL 0.4 MG/DL (0.3-1.2); BLOOD UREA NITROGEN 28 MG/DL (9-23); CALCIUM LEVEL 9.4 MG/DL (8.3-10.6); CARBON DIOXIDE LEVEL 31 MMOL/L (20-31); CHLORIDE LEVEL 104 MMOL/L (98-107); CREATININE FOR GFR 0.74 MG/DL (0.70-1.30); GLOMERULAR FILTRATION RATE > 60.0 (>42); GLUCOSE, FASTING 131 MG/DL (74-106); POTASSIUM SERUM 4.3 MMOL/L (3.5-5.1); SODIUM LEVEL 142 MMOL/L (136-145); TOTAL PROTEIN 6.7 G/DL (5.7-8.2)
[2023-07-26] MEDS ORDERED: LEVALBUTEROL 1.25MG 0.5ML CONCENTRATE NEB NEB PRN (09:15)
[2023-07-26] MEDS: APIXABAN 5 MG TAB (ELIQUIS) PO SCH (09:43)
[2023-07-26] MEDS: DIGOXIN 0.25 MG TAB PO ONE (09:44)
[2023-07-26] MEDS: dilTIAZem 25MG/5ML VIAL IV STA (10:33)
[2023-07-26] MEDS: diltiaZEM 125 MG in NS 100 ML IV SCH (10:40)
[2023-07-26] MEDS: MAG SULF 1GM/100ML (MAG RUN) 1 GM in IV 1 EA IV ONE (11:30)
[2023-07-26] MEDS: LEVALBUTEROL 1.25MG 0.5ML CONCENTRATE NEB NEB SCH (12:01)
[2023-07-26] MEDS: PANTOPRAZOLE 40MG VIAL IV SCH (13:08)
[2023-07-26] MEDS: dilTIAZem 30 MG TAB PO SCH (14:42)
[2023-07-26] MEDS ORDERED: PILL CUTTER 1 EACH XX PRN (16:00)
[2023-07-26] MEDS: DIGOXIN 0.25 MG TAB PO SCH (16:09)
[2023-07-26] MEDS: zolPIDEM TARTRATE 5 MG TAB PO SCH (21:00)
[2023-07-27] VITALS (10 sets, daily range): BP systolic 106–168; BP diastolic 54–79; TEMP 97.6–98.7; O2SAT 94–98
[2023-07-27 05:10] LABS: HEMATOCRIT 43.5 % (42.0-52.0); HEMOGLOBIN 14.3 g/dl (13.5-17.5); MEAN CORPUSCULAR HEMOGLOBIN 29.2 pg (27.0-33.0); MEAN CORPUSCULAR HGB CONC 32.9 g/dl (32.0-36.5); PLATELET COUNT, AUTOMATED 373 10^3/uL (150-450); RED BLOOD COUNT 4.89 10^6/uL (4.30-6.10); WHITE BLOOD COUNT 23.3 10^3/uL (4.0-10.0)
[2023-07-27 05:35] LABS: ALBUMIN 3.1 G/DL (3.2-5.2); ALKALINE PHOSPHATASE 81 U/L (46-116); ALT/SGPT 31 U/L (7.0-40); AST/SGOT 17 U/L (<34); BILIRUBIN,TOTAL 0.4 MG/DL (0.3-1.2); BLOOD UREA NITROGEN 31 MG/DL (9-23); CALCIUM LEVEL 8.9 MG/DL (8.3-10.6); CARBON DIOXIDE LEVEL 32 MMOL/L (20-31); CHLORIDE LEVEL 104 MMOL/L (98-107); CREATININE FOR GFR 0.82 MG/DL (0.70-1.30); GLOMERULAR FILTRATION RATE > 60.0 (>42); GLUCOSE, FASTING 93 MG/DL (74-106); POTASSIUM SERUM 4.7 MMOL/L (3.5-5.1); SODIUM LEVEL 142 MMOL/L (136-145); TOTAL PROTEIN 6.2 G/DL (5.7-8.2)
[2023-07-27] MEDS: predniSONE 20 MG TAB PO SCH (08:25)
[2023-07-27] MEDS: PANTOPRAZOLE 40MG TAB (PROTONIX) PO SCH (08:26)
[2023-07-27 09:09] LABS: PROCALCITONIN 0.15 ng/ml
[2023-07-27] MEDS: LevoFLOXacin 750 MG TABLET PO SCH (13:18)
[2023-07-27] MEDS ORDERED: LEVO1TAB40 PO ×2 (14:30→15:25)
[2023-07-27] MEDS ORDERED: DIGO0.123 PO ×2 (14:30→15:25)
[2023-07-27] MEDS ORDERED: ELIQ5TAB PO ×2 (14:30→15:25)
[2023-07-27] MEDS ORDERED: PRED20TA PO ×2 (14:30→15:25)
[2023-07-28] MEDS ORDERED: DIGOXIN 0.125 MG TAB PO SCH (09:00)
== END 2023-07-27 14:10 | disposition home or self-care (01) | DRG 871 ==
LOC: M ED 10:52 → M ED INP 10:53 → M MSPAV 17:36 → OBSVTOIN 07-26 09:26 → M ICU 07-26 10:07
PROVIDERS: ADMIT Internal Medicine; ATTEND Internal Medicine Pulmonary Disease
DX: A41.9 Sepsis, unspecified organism (principal); J15.1 Pneumonia due to Pseudomonas; J96.11 Chronic respiratory failure with hypoxia; J44.0 Chronic obstructive pulmonary disease with (acute) lower respiratory infection; I47.10 Supraventricular tachycardia, unspecified; J98.11 Atelectasis; I48.92 Unspecified atrial flutter; J44.1 Chronic obstructive pulmonary disease with (acute) exacerbation; I10 Essential (primary) hypertension; G47.00 Insomnia, unspecified; I48.0 Paroxysmal atrial fibrillation; Z85.51 Personal history of malignant neoplasm of bladder; Z87.891 Personal history of nicotine dependence; Z79.82 Long term (current) use of aspirin; Z79.899 Other long term (current) drug therapy; Z88.8 Allergy status to other drugs, medicaments and biological substances

== ENCOUNTER 2023-08-01 08:42 | Inpatient (IN) | payer OTHER, MEDICARE ==
[~2023-08-01] VITALS: Ht 177.8 cm; Wt 61.5 kg
[~2023-08-01 08:42] MED LIST changes: +DIGO0.123 PO; +ELIQ5TAB PO; +MULT-90 PO
[2023-08-01] MEDS ORDERED: ISOVUE-370 76% 100ML VIAL As Ordered ONE (09:28)
[2023-08-01 09:32] LABS: BASO # 0.1 10^3/uL (0.0-0.2); BASO % 0.2 % (0.0-1.0); EOS % 0.2 % (0.0-3.0); HEMOGLOBIN 13.3 g/dl (13.5-17.5); LYMPH # 1.3 10^3/uL (1.5-5.0); MEAN CORPUSCULAR HEMOGLOBIN 29.9 pg (27.0-33.0); MEAN CORPUSCULAR HGB CONC 34.1 g/dl (32.0-36.5); MEAN CORPUSCULAR VOLUME 87.6 fl (80.0-96.0); MONO % 7.7 % (2.0-8.0); NEUTROPHILS % 82.8 % (36.0-66.0); PLATELET COUNT, AUTOMATED 244 10^3/uL (150-450); RED BLOOD COUNT 4.45 10^6/uL (4.30-6.10); WHITE BLOOD COUNT 25.4 10^3/uL (4.0-10.0)
[2023-08-01] MEDS: MORPHINE 2 MG/ML 1ML VIAL IV PRN (09:38)
[2023-08-01] MEDS: ONDANSETRON 4MG 2ML VIAL IV ONE (09:52)
[2023-08-01 09:54] LABS: INR 1.36; PARTIAL THROMBOPLASTIN TIME 30.3 SECONDS (24.8-34.2); PROTHROMBIN TIME 16.4 SECONDS (12.5-14.5)
[2023-08-01 10:01] LABS: LIPASE 30 U/L (12-53)
[2023-08-01 10:03] LABS: ALBUMIN 2.8 G/DL (3.2-5.2); ALKALINE PHOSPHATASE 79 U/L (46-116); ALT/SGPT 30 U/L (7.0-40); AST/SGOT 25 U/L (<34); BILIRUBIN,DIRECT 0.3 MG/DL (<0.4); BILIRUBIN,TOTAL 0.8 MG/DL (0.3-1.2); BLOOD UREA NITROGEN 25 MG/DL (9-23); CALCIUM LEVEL 8.1 MG/DL (8.3-10.6); CARBON DIOXIDE LEVEL 28 MMOL/L (20-31); CHLORIDE LEVEL 98 MMOL/L (98-107); CREATININE FOR GFR 0.88 MG/DL (0.70-1.30); GLOMERULAR FILTRATION RATE > 60.0 (>42); GLUCOSE, FASTING 81 MG/DL (74-106); POTASSIUM SERUM 4.4 MMOL/L (3.5-5.1); SODIUM LEVEL 134 MMOL/L (136-145); TOTAL PROTEIN 5.6 G/DL (5.7-8.2)
[2023-08-01] MEDS ORDERED: PRED20TA PO (10:35)
[2023-08-01] MEDS ORDERED: LEVO1TAB40 PO (10:35)
[2023-08-01] MEDS ORDERED: ASPI81TA26 PO (10:35)
[2023-08-01] MEDS ORDERED: HOME MED LIST COMPLETE! XX SCH (10:35)
[2023-08-01] MEDS ORDERED: ELIQ5TAB PO (10:35)
[2023-08-01] MEDS ORDERED: DIGO0.123 PO (10:35)
[2023-08-01] MEDS ORDERED: IPRATROPIUM 0.5MG/ALBUTEROL 2.5MG INH SOL UD 3ML (DUONEB) NEB PRN (13:00)
[2023-08-01] MEDS ORDERED: SENNA 8.6 MG TAB (SENOKOT) PO PRN (13:05)
[2023-08-01] MEDS: BENZONATATE 100MG CAPSULE PO SCH (13:14)
[2023-08-01] MEDS: MIRALAX *UNIT DOSE* 17GM PACKET PO SCH (13:14)
[2023-08-01 13:15] LABS: PROCALCITONIN 0.18 ng/ml
[2023-08-01] MEDS: IPRATROPIUM 0.5MG/ALBUTEROL 2.5MG INH SOL UD 3ML (DUONEB) NEB SCH (14:08)
[2023-08-01] MEDS: ADVAIR HFA 230/21MCG INHALER INH SCH (19:55)
[2023-08-01 20:00] VITALS: BP 139/77; TEMP 97.2
[2023-08-01 20:09] LABS: HEMATOCRIT 36.3 % (42.0-52.0); HEMOGLOBIN 12.3 g/dl (13.5-17.5); MEAN CORPUSCULAR HEMOGLOBIN 29.4 pg (27.0-33.0); MEAN CORPUSCULAR HGB CONC 33.9 g/dl (32.0-36.5); MEAN CORPUSCULAR VOLUME 86.8 fl (80.0-96.0); PLATELET COUNT, AUTOMATED 229 10^3/uL (150-450); RED BLOOD COUNT 4.18 10^6/uL (4.30-6.10); WHITE BLOOD COUNT 21.5 10^3/uL (4.0-10.0)
[2023-08-01] MEDS: dilTIAZem 30 MG TAB PO SCH (20:16)
[2023-08-01 20:17] VITALS: BP 139/77; TEMP 97.2; O2SAT 94
[2023-08-01 23:43] VITALS: BP 146/69; TEMP 97.5; O2SAT 95
[2023-08-02 00:05] VITALS: BP 146/69; TEMP 97.5; O2SAT 95
[2023-08-02 04:01] VITALS: BP 157/72; TEMP 97.1; O2SAT 96
[2023-08-02 05:45] LABS: HEMATOCRIT 37.5 % (42.0-52.0); HEMOGLOBIN 12.6 g/dl (13.5-17.5); MEAN CORPUSCULAR HEMOGLOBIN 29.6 pg (27.0-33.0); MEAN CORPUSCULAR HGB CONC 33.6 g/dl (32.0-36.5); PLATELET COUNT, AUTOMATED 239 10^3/uL (150-450); RED BLOOD COUNT 4.26 10^6/uL (4.30-6.10); WHITE BLOOD COUNT 19.7 10^3/uL (4.0-10.0)
[2023-08-02] MEDS: LevoFLOXacin 750 MG TABLET PO SCH (06:04)
[2023-08-02 06:18] LABS: BLOOD UREA NITROGEN 21 MG/DL (9-23); CALCIUM LEVEL 7.8 MG/DL (8.3-10.6); CARBON DIOXIDE LEVEL 32 MMOL/L (20-31); CHLORIDE LEVEL 99 MMOL/L (98-107); CREATININE FOR GFR 0.89 MG/DL (0.70-1.30); GLOMERULAR FILTRATION RATE > 60.0 (>42); GLUCOSE, FASTING 81 MG/DL (74-106); POTASSIUM SERUM 4.4 MMOL/L (3.5-5.1); SODIUM LEVEL 135 MMOL/L (136-145)
[2023-08-02] MEDS: DIGOXIN 0.125 MG TAB PO SCH (08:39)
[2023-08-02] MEDS: MONTELUKAST 10 MG TAB PO SCH (08:39)
[2023-08-02] MEDS: predniSONE 20 MG TAB PO SCH (08:40)
[2023-08-02] MEDS: MORPHINE 4 MG/ML 1ML VIAL IV PRN (09:32)
[2023-08-02] MEDS ORDERED: ACETAMINOPHEN TAB 650MG DOSE (2X325MG) PO PRN (10:20)
[2023-08-02 11:56] VITALS: BP 118/56; TEMP 99; O2SAT 93
[2023-08-02 16:19] VITALS: BP 134/60; TEMP 98.3; O2SAT 92
[2023-08-02 18:59] VITALS: BP 120/56; TEMP 98.6; O2SAT 94
[2023-08-02 23:46] VITALS: BP 134/61; TEMP 98.2; O2SAT 93
[2023-08-03 00:58] VITALS: BP 134/61; TEMP 98.2; O2SAT 93
[2023-08-03 03:33] VITALS: BP 159/74; TEMP 98.3; O2SAT 94
[2023-08-03 04:59] VITALS: BP 159/74; TEMP 98.2; O2SAT 94
[2023-08-03 06:19] LABS: HEMATOCRIT 33.8 % (42.0-52.0); HEMOGLOBIN 11.2 g/dl (13.5-17.5); MEAN CORPUSCULAR HEMOGLOBIN 29.1 pg (27.0-33.0); MEAN CORPUSCULAR HGB CONC 33.1 g/dl (32.0-36.5); MEAN CORPUSCULAR VOLUME 87.8 fl (80.0-96.0); PLATELET COUNT, AUTOMATED 225 10^3/uL (150-450); RED BLOOD COUNT 3.85 10^6/uL (4.30-6.10)
[2023-08-03 06:59] LABS: ALBUMIN 2.4 G/DL (3.2-5.2); ALKALINE PHOSPHATASE 66 U/L (46-116); ALT/SGPT 26 U/L (7.0-40); AST/SGOT 15 U/L (<34); BILIRUBIN,TOTAL 0.5 MG/DL (0.3-1.2); BLOOD UREA NITROGEN 24 MG/DL (9-23); CARBON DIOXIDE LEVEL 31 MMOL/L (20-31); CHLORIDE LEVEL 104 MMOL/L (98-107); CREATININE FOR GFR 0.81 MG/DL (0.70-1.30); GLOMERULAR FILTRATION RATE > 60.0 (>42); GLUCOSE, FASTING 106 MG/DL (74-106); POTASSIUM SERUM 4.7 MMOL/L (3.5-5.1); SODIUM LEVEL 138 MMOL/L (136-145); TOTAL PROTEIN 4.9 G/DL (5.7-8.2)
[2023-08-03] MEDS: TIOTROPIUM INHALER/CAPSULE (SPIRIVA) INH SCH (07:35)
[2023-08-03 08:02] LABS: PROCALCITONIN 0.14 ng/ml
[2023-08-03 08:11] VITALS: BP 163/69; O2SAT 95
[2023-08-03 09:18] VITALS: BP 163/69
[2023-08-03] MEDS: predniSONE 20 MG TAB PO SCH (09:18)
[2023-08-03] MEDS ORDERED: TRAM50TA2 PO ×2 (10:29→13:18)
[2023-08-03 12:18] LABS: HEMATOCRIT 33.9 % (42.0-52.0); HEMOGLOBIN 11.6 g/dl (13.5-17.5)
== END 2023-08-03 14:45 | disposition home or self-care (01) | DRG 604 ==
LOC: M ED 08:42 → M ED INP 12:34 → ENRESERV 15:32 → M PCU 16:15
PROVIDERS: ADMIT Internal Medicine; ATTEND Internal Medicine
DX: S30.1XXA Contusion of abdominal wall, initial encounter (principal); J15.1 Pneumonia due to Pseudomonas; I48.0 Paroxysmal atrial fibrillation; K59.00 Constipation, unspecified; J44.9 Chronic obstructive pulmonary disease, unspecified; Z66 Do not resuscitate; Z79.01 Long term (current) use of anticoagulants; Z79.82 Long term (current) use of aspirin; Z79.52 Long term (current) use of systemic steroids; Z79.899 Other long term (current) drug therapy; Z88.1 Allergy status to other antibiotic agents; Z99.81 Dependence on supplemental oxygen

== ENCOUNTER → 2024-06-05 | Outpatient (CLI) | payer OTHER, MEDICARE ==
[~2024-06-05] MED LIST changes: -ADV100INH INH; -ADV500INH INH; +ADVA1AER10 INH; +ADVA1AER8 INH; +ASPI81TA26 PO; +TRAM50TA2 PO
== END ==
LOC: M WUC 11:14
PROVIDERS: ATTEND Student in an Organized Health Care Education/Training Program
DX: R06.02 Shortness of breath (principal)

== ENCOUNTER 2025-04-13 03:19 | Inpatient (IN) | payer MEDICARE ==
[~2025-04-13] VITALS: Ht 177.8 cm; Wt 64.1 kg
[~2025-04-13 03:19] MED LIST changes: -PRED50TA PO; +PRED50TA57 PO
[2025-04-13 03:54] LABS: VENOUS BASE EXCESS 1.7 (-2.0-2.0); VENOUS HCO3 29.3 MMOL/L (23.0-27.0); VENOUS O2 SATURATION 49.4 % (60.0-80.0); VENOUS PARTIAL PRESSURE CO2 58.0 mmHg (38.0-50.0); VENOUS PARTIAL PRESSURE O2 27.7 mmHg (30.0-50.0); VENOUS PH 7.321 UNITS (7.330-7.430); VENOUS STANDARD HCO3 24.8 MMOL/L; VENOUS TOTAL CO2 31.1 MMOL/L (24.0-28.0)
[2025-04-13] MEDS: IPRATROPIUM 0.5 MG/ALBUTEROL 2.5 MG INH SOL UD 3 ML NEB ONE (04:01)
[2025-04-13 04:02] LABS: PLATELET COUNT, AUTOMATED 242 10^3/uL (150-450)
[2025-04-13 04:24] LABS: CPK CREATINE PHOSPHOKINASE 42 U/L (46-171)
[2025-04-13 04:25] LABS: ALT/SGPT 17 U/L (7.0-40); AST/SGOT 17 U/L (<34); CALCIUM LEVEL 8.9 MG/DL (8.3-10.6); CARBON DIOXIDE LEVEL 29 MMOL/L (20-31); CHLORIDE LEVEL 99 MMOL/L (98-107); CREATININE FOR GFR 1.01 MG/DL (0.70-1.30); GLOMERULAR FILTRATION RATE 79.0 (>42); POTASSIUM SERUM 4.4 MMOL/L (3.5-5.1); SODIUM LEVEL 138 MMOL/L (136-145)
[2025-04-13 04:33] LABS: INR 1.14
[2025-04-13 04:44] LABS: CK-MB VALUE MASS < 1.0 NG/ML (<3.6)
[2025-04-13 05:00] LABS: ATYPICAL LYMPH 7 % (0-5); EOSINOPHILS 2 % (0-3); LYMPHOCYTES 5 % (16-44); MONOCYTES 15 % (0-5); NEUTROPHILS 71 % (28-66); PLATELET ESTIMATE NORMAL (NORMAL)
[2025-04-13] MEDS ORDERED: ISOVUE-370 76% 100 ML VIAL As Ordered ONE (05:02)
[2025-04-13] MEDS: PIPERACILLIN/TAZOBACTAM SOD 4.5 GM in DEXTROSE 5% (D5W) ADV/MINI-BAG 50 ML IV ONE (06:10)
[2025-04-13 06:26] LABS: CK-MB VALUE MASS < 1.0 NG/ML (<3.6)
[2025-04-13 06:49] LABS: CPK CREATINE PHOSPHOKINASE 35 U/L (46-171)
[2025-04-13] MEDS ORDERED: TRAM50TA2 PO (08:35)
[2025-04-13] MEDS ORDERED: traMADol 50 MG TAB PO PRN (08:40)
[2025-04-13] MEDS ORDERED: HOME MED LIST COMPLETE! XX SCH (08:40)
[2025-04-13] MEDS ORDERED: IPRATROPIUM 0.5 MG/ALBUTEROL 2.5 MG INH SOL UD 3 ML NEB PRN (08:40)
[2025-04-13] MEDS ORDERED: ADVAIR HFA 230/21 MCG INHALER INH SCH (09:00)
[2025-04-13] MEDS: ENOXAPARIN 40 MG/0.4 ML SYRINGE (J1650 PER 10MG) SC SCH (09:00)
[2025-04-13] MEDS ORDERED: cefTRIAXone SOD 1 GM in DEXTROSE 5% (D5W) ADV/MINI-BAG 50 ML IV SCH (09:00)
[2025-04-13] MEDS: MONTELUKAST 10 MG TAB PO SCH (09:11)
[2025-04-13] MEDS: DIGOXIN 0.125 MG TAB PO SCH (09:11)
[2025-04-13] MEDS: AZITHROMYCIN 250 MG TABLET PO SCH (09:12)
[2025-04-13] MEDS: dilTIAZem 30 MG TAB PO SCH (09:12)
[2025-04-13] MEDS: predniSONE 20 MG TAB PO SCH (09:12)
[2025-04-13 09:31] VITALS: BP 148/69; TEMP 97.3; O2SAT 89; O2SAT 98
[2025-04-13 11:52] VITALS: BP 136/67; TEMP 98; O2SAT 94
[2025-04-13 12:03] VITALS: BP 131/63; TEMP 97.9; O2SAT 92
[2025-04-13] MEDS: PIPERACILLIN/TAZOBACTAM SOD 4.5 GM in DEXTROSE 5% (D5W) ADV/MINI-BAG 50 ML IV SCH (12:04)
[2025-04-13] MEDS: TIOTROPIUM BROM 2.5MCG/ACTUATION 4GM INH INH SCH (12:35)
[2025-04-13] MEDS: ADVAIR HFA 230/21 MCG INHALER INH SCH (12:36)
[2025-04-13] MEDS: IPRATROPIUM 0.5 MG/ALBUTEROL 2.5 MG INH SOL UD 3 ML NEB SCH (12:37)
[2025-04-13] MEDS: SODIUM CHLORIDE HYPERTONIC 3% 4ML NEB SOL INH SCH (12:37)
[2025-04-13 15:14] VITALS: O2SAT 86
[2025-04-13 15:15] VITALS: O2SAT 88
[2025-04-13 19:47] VITALS: BP 170/77; TEMP 98; O2SAT 97
[2025-04-14 04:36] VITALS: BP 147/70; TEMP 97.6; O2SAT 95
[2025-04-14 06:33] LABS: PLATELET COUNT, AUTOMATED 229 10^3/uL (150-450)
[2025-04-14 06:42] LABS: ALT/SGPT 16.0 U/L (7.0-40); AST/SGOT 18.0 U/L (<34); CALCIUM LEVEL 8.3 MG/DL (8.3-10.6); CARBON DIOXIDE LEVEL 28.0 MMOL/L (20-31); CHLORIDE LEVEL 102.0 MMOL/L (98-107); CREATININE FOR GFR 1.0 MG/DL (0.70-1.30); GLOMERULAR FILTRATION RATE 80.0 (>42); POTASSIUM SERUM 3.8 MMOL/L (3.5-5.1); SODIUM LEVEL 141.0 MMOL/L (136-145)
[2025-04-14 11:50] VITALS: BP 157/72; TEMP 98.1; O2SAT 93
[2025-04-14 13:50] VITALS: BP 135/62
[2025-04-14 20:00] VITALS: BP 143/68; TEMP 98.4; O2SAT 92
[2025-04-15 03:41] VITALS: BP 143/67; TEMP 98.3; O2SAT 94
[2025-04-15 09:06] LABS: BASO # 0.0 10^3/uL (0.0-0.2); BASO % 0.1 % (0.0-1.0); EOS # 0.0 10^3/uL (0.0-0.5); EOS % 0.0 % (0.0-3.0); LYMPH # 0.7 10^3/uL (1.5-5.0); LYMPH % 3.5 % (24.0-44.0); MONO # 1.2 10^3/uL (0.0-0.8); MONO % 6.0 % (2.0-8.0); NEUTROPHILS # 18.4 10^3/uL (1.5-8.5); NEUTROPHILS % 89.6 % (36.0-66.0); PLATELET COUNT, AUTOMATED 313 10^3/uL (150-450)
[2025-04-15 09:29] LABS: C REACTIVE PROTEIN QUANTITATIV 8.22 MG/DL (<1.0)
[2025-04-15 09:41] LABS: ALT/SGPT 33.0 U/L (7.0-40); AST/SGOT 31.0 U/L (<34); CALCIUM LEVEL 8.7 MG/DL (8.3-10.6); CARBON DIOXIDE LEVEL 29.0 MMOL/L (20-31); CHLORIDE LEVEL 104.0 MMOL/L (98-107); CREATININE FOR GFR 1.03 MG/DL (0.70-1.30); GLOMERULAR FILTRATION RATE 77.2 (>42); POTASSIUM SERUM 4.3 MMOL/L (3.5-5.1); SODIUM LEVEL 143.0 MMOL/L (136-145)
[2025-04-15 11:38] VITALS: BP 166/75; TEMP 97.6; O2SAT 95
[2025-04-15] MEDS: BENZONATATE 100 MG CAPSULE PO SCH (14:29)
[2025-04-15] MEDS ORDERED: LevoFLOXacin IV 750 MG in IV 1 EA IV SCH (18:00)
[2025-04-15 20:00] VITALS: BP 155/81; TEMP 99.3; O2SAT 97
[2025-04-15] MEDS: traZODone 50 MG TAB PO PRN (21:54)
[2025-04-16 05:15] VITALS: BP 138/78; TEMP 98.5; O2SAT 94
[2025-04-16 05:55] LABS: PLATELET COUNT, AUTOMATED 274 10^3/uL (150-450)
[2025-04-16 11:58] VITALS: BP 141/69; TEMP 98.2; O2SAT 92
[2025-04-16 20:00] VITALS: BP 147/68; TEMP 97.9; O2SAT 94
[2025-04-17 06:00] VITALS: BP 135/89; TEMP 98.5; O2SAT 91
[2025-04-17] MEDS ORDERED: BENZ-18 PO (08:42)
[2025-04-17] MEDS ORDERED: LEVO75TAB PO (08:42)
[2025-04-17] MEDS ORDERED: PRED10TA2 PO (08:42)
[2025-04-17 08:51] VITALS: BP 135/89
== END 2025-04-17 12:07 | disposition home or self-care (01) | DRG 177 ==
LOC: M ED 03:19 → EDBD 03:19 → M ED INP 03:20 → M MS4PR 09:40 → INTOOBSV 04-15 12:43 → OBSVTOIN 04-15 12:43 → EEVIPCON 04-15 13:50 → OBSVTOIN 04-15 13:50
PROVIDERS: ADMIT Internal Medicine; ATTEND Internal Medicine
DX: J15.69 Pneumonia due to other Gram-negative bacteria (principal); J96.21 Acute and chronic respiratory failure with hypoxia; J44.1 Chronic obstructive pulmonary disease with (acute) exacerbation; I48.91 Unspecified atrial fibrillation; G89.29 Other chronic pain; Z66 Do not resuscitate; Z79.899 Other long term (current) drug therapy; Z88.8 Allergy status to other drugs, medicaments and biological substances